=== PATIENT | male | born 1960 | race Caucasian/White ===

== ENCOUNTER → 2016-12-19 | Outpatient (CLI) | payer MEDICARE, MEDICAID ==
--- NOTE | 2016-12-20 08:43 | RADIOLOGY REPORT (SQ) ---
EXAM DESCRIPTION: CHEST PA/LATERAL COMPLETED DATE/TIME: 12/19/2016 5:22 pm REASON FOR STUDY: COUGH COMPARISON: July 2014 05/03/2014 EXAM PARAMETERS: NUMBER OF VIEWS: two views TECHNIQUE: Digital Frontal and Lateral radiographic views of the chest acquired. RADIATION DOSE: NA LIMITATIONS: none FINDINGS: LUNGS AND PLEURA: No opacities, masses or pneumothorax. No pleural effusion. Calcific den sity is identified overlying the right hemidiaphragm consistent with a pleural calcification which wa s present on the previous study. I cannot exclude a component of obstructive lung disease. MEDIASTINUM AND HILAR STRUCTURES: No masses or contour abnormalities. HEART AND VASCULAR STRUCTURES: Heart normal size. No evidence for failure. BONES: No acute findings. HARDWARE: None in the chest. OTHER: No other significant finding. IMPRESSION: No significant interval change. No acute findings. Other findings as noted above TECHNICAL DOCUMENTATION: JOB ID: [id number] [employer]- All Rights Reserved
== END ==
LOC: OD 16:59
PROVIDERS: ATTEND Family Medicine Geriatric Medicine
DX: R05 Cough (principal)
CPT/HCPCS: 71020

== ENCOUNTER → 2017-02-13 | Outpatient (CLI) | payer MEDICARE, MEDICAID ==
[2017-02-13 11:52] LABS: ABSOLUTE EOSINOPHILS # (AUTO) 0.1 10^3/uL (0.0-0.6); ABSOLUTE LYMPHOCYTES (AUTO) 1.2 10^3/uL (0.5-4.7); ABSOLUTE MONOCYTES (AUTO) 0.4 10^3/uL (0.1-1.4); ABSOLUTE NEUT (AUTO) 3.4 10^3/uL (1.7-8.2); BASOPHILS % (AUTO) 0.8 % (0-2); EOSINOPHILS % (AUTO) 2.3 % (0-6); HEMATOCRIT 46.6 % (37.9-51.0); HEMOGLOBIN 15.6 g/dL (13.5-17.0); HGB HCT DIFFERENCE 0.2; LYMPHOCYTES % (AUTO) 24.1 % (13-45); MEAN CORPUSCULAR HGB CONC 33.4 g/dL (32.0-36.0); MEAN CORPUSCULAR VOLUME 93 fl (80-97); MONOCYTES % (AUTO) 7.1 % (3-13); RED BLOOD COUNT 5.02 10^6/uL (4.35-5.55); SEGMENTED NEUTROPHILS % (AUTO) 65.7 % (42-78); WHITE BLOOD COUNT 5.2 10^3/uL (4.0-10.5)
[2017-02-13 12:20] LABS: ALANINE AMINOTRANSFERASE 26 U/L (21-72); ALBUMIN 4.3 g/dL (3.5-5.0); ALKALINE PHOSPHATASE 59 U/L (38-126); ANION GAP 13 (5-19); ASPARTATE AMINO TRANSFERASE 27 U/L (17-59); BILIRUBIN,DIRECT 0.4 mg/dL (0.0-0.4); BILIRUBIN,TOTAL 1.2 mg/dL (0.2-1.3); BLOOD UREA NITROGEN 18 mg/dL (7-20); CALCIUM 9.1 mg/dL (8.4-10.2); CARBON DIOXIDE 22 mmol/L (22-30); CHLORIDE 105 mmol/L (98-107); CHOLESTEROL 144.24 mg/dL (0-200); CREATININE RESULT 0.77 mg/dL (0.52-1.25); Direct HDL 46 mg/dL (>40); GLUCOSE 83 mg/dL (75-110); POTASSIUM 4.6 mmol/L (3.6-5.0); TOTAL PROTEIN 7.1 g/dL (6.3-8.2); TRIGLYCERIDES 92 mg/dL (<150)
[2017-02-13 12:33] LABS: DIRECT LDL 78 mg/dL (<100)
== END ==
LOC: OD 10:58
PROVIDERS: ATTEND Family Medicine Geriatric Medicine
DX: Z79.899 Other long term (current) drug therapy (principal); R05 Cough; G82.50 Quadriplegia, unspecified
CPT/HCPCS: 36415; 80053; 80061; 84443; 85025

== ENCOUNTER → 2017-03-18 | Outpatient (CLI) | payer MEDICARE, MEDICAID ==
[~2017-03-18] MED LIST: ALBUTEROL SULFATE 0.083% NEB 2.5 MG/3 ML AMPUL NEB ONE
--- NOTE | 2017-03-19 08:54 | PULMONARY FUNCTION TEST ---
DATE OF SERVICE: 03/18/2017 THE VITAL CAPACITY IS MODERATELY DECREASED. THE EXPIRATORY FLOW RATES ARE MODERATELY DECREASED. THE FEV1/VC IS 73%, PREDICTED: 80% LUNG VOLUMES BY NITROGEN WASH OUT METHOD SHOW: TLC IS 78% OF PREDICTED FRC IS 74% OF PREDICTED RV IS 91% OF PREDICTED THE DLCO IS 20.9, 86% OF PREDICTED. THE RV/TLC RATIO IS 41% PREDICTED 36% AFTER BRONCHODILATOR, EXPIRATORY FLOW RATES SHOW NO SIGNIFICANT CHANGE. IMPRESSION: GOOD PATIENT EFFORT. SLIGHT OBSTRUCTIVE AND SLIGHT RESTRICTIVE DEFECTS. LUNG VOLUMES ARE SLIGHTLY DECREASED; DIFFUSING CAPACITY IS SLIGHTLY DECREASED. CC: MICK BE MD > FRANSISCA
== END ==
LOC: RT 12:33
PROVIDERS: ATTEND Family Medicine Geriatric Medicine
DX: J44.9 Chronic obstructive pulmonary disease, unspecified (principal)
CPT/HCPCS: 94729 ×2; 94727 ×2; 94060 ×2; A9270

== ENCOUNTER 2017-03-29 16:18 | Emergency (ER) | payer MEDICARE, MEDICAID ==
--- NOTE | 2017-03-29 16:38 | ER Document Report ---
ED Medical Screen (RME) - General Chief Complaint: Urinary Problem Stated Complaint: ABDOMINAL PAIN Time Seen by Provider: 03/29/17 16:32 Mode of Arrival: Wheelchair Information source: Patient, Relative Notes: 56-year-old male presents with complaints of urinary symptoms dehydration. Patient denies any fevers or chills does note some weakness Patient concerned the breakdown of skin and scrotal region which they placed nystatin on I have greeted and performed a rapid initial assessment of this patient. A comprehensive ED assessment and evaluation of the patient, analysis of test results and completion of the medical decision making process will be conducted by additional ED providers. PHYSICAL EXAMINATION: GENERAL: Frail-appearing male in wheelchair HEAD: Atraumatic, normocephalic. EYES: Pupils equal round extraocular movements intact, conjunctiva are normal. ENT: Nares patent NECK: Normal range of motion LUNGS: No respiratory distress Musculoskeletal: Normal range of motion NEUROLOGICAL: Normal speech, normal gait. PSYCH: Normal mood, normal affect. TRAVEL OUTSIDE OF THE [place] IN LAST 30 DAYS: No - Related Data Allergies/Adverse Reactions: No Known Allergies Allergy (Verified 03/29/17 16:32) Past Medical History - Social History Chew tobacco use (# tins/day): No Frequency of alcohol use: Occasional Drug Abuse: None - Past Medical History Cardiac Medical History: Denies: Hx Coronary Artery Disease, Hx Heart Attack, Hx Hypertension, Hx Pulmonary Embolism Pulmonary Medical History: Denies: Hx Asthma, Hx Bronchitis, Hx COPD, Hx Pneumonia, Hx Respiratory Failure, Hx Sleep Apnea, Hx Tuberculosis Neurological Medical History: Denies: Hx Cerebrovascular Accident, Hx Seizures Renal/ Medical History: Denies: Hx Peritoneal Dialysis Malignancy Medical History: Denies Hx Lung Cancer Musculoskeltal Medical History: Denies Hx Arthritis, Denies Hx Multiple Sclerosis Psychiatric Medical History: Denies: Hx Dementia Traumatic Medical History: Reports: Hx Fractures - spinal C6-C7, fingers, toe Past Surgical History: Reports: Hx Urinary Tract Surgery - removal scar tissue - Immunizations Hx Diphtheria, Pertussis, Tetanus Vaccination: Yes Physical Exam - Vital signs Vitals: Temp Pulse Resp BP Pulse Ox 97.9 F 80 19 82/58 L 98 03/29/17 16:22 03/29/17 16:22 03/29/17 16:22 03/29/17 16:22 03/29/17 16:22 Course - Vital Signs Vital signs: Temp Pulse Resp BP Pulse Ox 97.9 F 80 19 82/58 L 98 03/29/17 16:22 03/29/17 16:22 03/29/17 16:22 03/29/17 16:22 03/29/17 16:22
[2017-03-29 17:26] LABS: ABSOLUTE BASOPHILS # (AUTO) 0.1 10^3/uL (0.0-0.2); ABSOLUTE EOSINOPHILS # (AUTO) 0.1 10^3/uL (0.0-0.6); ABSOLUTE LYMPHOCYTES (AUTO) 1.2 10^3/uL (0.5-4.7); ABSOLUTE MONOCYTES (AUTO) 0.4 10^3/uL (0.1-1.4); ABSOLUTE NEUT (AUTO) 5.4 10^3/uL (1.7-8.2); BASOPHILS % (AUTO) 0.8 % (0-2); EOSINOPHILS % (AUTO) 1.6 % (0-6); HEMATOCRIT 44.6 % (37.9-51.0); HGB HCT DIFFERENCE 0.4; MEAN CORPUSCULAR HEMOGLOBIN 31.1 pg (27.0-33.4); MEAN CORPUSCULAR HGB CONC 33.6 g/dL (32.0-36.0); MEAN CORPUSCULAR VOLUME 93 fl (80-97); MONOCYTES % (AUTO) 5.3 % (3-13); RED BLOOD COUNT 4.82 10^6/uL (4.35-5.55); RED CELL DISTRIBUTION WIDTH 13.6 % (11.5-14.0); SEGMENTED NEUTROPHILS % (AUTO) 75.3 % (42-78); WHITE BLOOD COUNT 7.1 10^3/uL (4.0-10.5)
[2017-03-29 17:44] LABS: ALANINE AMINOTRANSFERASE 30 U/L (21-72); ALBUMIN 4.1 g/dL (3.5-5.0); ALKALINE PHOSPHATASE 87 U/L (38-126); ANION GAP 10 (5-19); ASPARTATE AMINO TRANSFERASE 23 U/L (17-59); BILIRUBIN,DIRECT 0.3 mg/dL (0.0-0.4); BILIRUBIN,TOTAL 0.7 mg/dL (0.2-1.3); BLOOD UREA NITROGEN 15 mg/dL (7-20); CALCIUM 9.4 mg/dL (8.4-10.2); CARBON DIOXIDE 25 mmol/L (22-30); CHLORIDE 104 mmol/L (98-107); CREATININE RESULT 0.75 mg/dL (0.52-1.25); GLUCOSE 102 mg/dL (75-110); POTASSIUM 4.2 mmol/L (3.6-5.0); SODIUM 139.4 mmol/L (137-145); TOTAL PROTEIN 6.7 g/dL (6.3-8.2)
[2017-03-29] MEDS: NORMAL SALINE 1000 ML 1,000 ML IV PRN ×2 (18:14→18:16)
[2017-03-29 18:25] LABS: APPEARANCE,URINE CLOUDY; BILIRUBIN,URINE NEGATIVE (NEGATIVE); GLUCOSE, URINE NEGATIVE (NEGATIVE); KETONES,URINE NEGATIVE (NEGATIVE); LEUKOCYTE ESTERASE,URINE LARGE (NEGATIVE); NITRITE,URINE NEGATIVE (NEGATIVE); PROTEIN,URINE 30 mg/dL (NEGATIVE); URINE SPECIFIC GRAVITY 1.023; UROBILINOGEN,URINE NEGATIVE mg/dL (<2.0)
[2017-03-29] MEDS ORDERED: CEFTRIAXONE 1 GM/D5W RTU 1 GM/50 ML RTUPB IV ONE (18:40)
[2017-03-29] MEDS ORDERED: NORMAL SALINE 1000 ML 1,000 ML IV ONE (18:40)
[2017-03-29] MEDS ORDERED: NYSTATIN OINTMENT 15 GM TUBE TP ONE (18:45)
[2017-03-29] MEDS ORDERED: NYSTATIN/TRIAMCIN CREAM 15 GM TP ONE (19:23)
--- NOTE | 2017-03-29 19:24 | ER Document Report ---
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 Patient is dependent on straight cathing at baseline but states that he typically does not have periods of incontinence associated with this. However over the last 2 weeks he has been frequently incontinent and believes that this urine is burning the soft tissues around the perineal region. He has had a history of similar symptoms in the past with urinary tract infections. He denies any fever or constitutional symptoms. He has not been able to see his primary care doctor regarding these concerns. He is insensate to the area so is uncertain of the area is painful or not. TRAVEL OUTSIDE OF THE [place] IN LAST 30 DAYS: No - Related Data Allergies/Adverse Reactions: No Known Allergies Allergy (Verified 03/29/17 16:32) Past Medical History - General Information source: Patient, Relative - Social History Smoking Status: Never Smoker Chew tobacco use (# tins/day): No Frequency of alcohol use: Occasional Drug Abuse: None Lives with: Spouse/Significant other Family History: Reviewed & Not Pertinent - Past Medical History Cardiac Medical History: Denies: Hx Coronary Artery Disease, Hx Heart Attack, Hx Hypertension, Hx Pulmonary Embolism Pulmonary Medical History: Denies: Hx Asthma, Hx Bronchitis, Hx COPD, Hx Pneumonia, Hx Respiratory Failure, Hx Sleep Apnea, Hx Tuberculosis Neurological Medical History: Denies: Hx Cerebrovascular Accident, Hx Seizures Renal/ Medical History: Denies: Hx Peritoneal Dialysis Malignancy Medical History: Denies Hx Lung Cancer Musculoskeltal Medical History: Denies Hx Arthritis, Denies Hx Multiple Sclerosis Psychiatric Medical History: Denies: Hx Dementia Traumatic Medical History: Reports: Hx Fractures - spinal C6-C7, fingers, toe Past Surgical History: Reports: Hx Urinary Tract Surgery - removal scar tissue - Immunizations Hx Diphtheria, Pertussis, Tetanus Vaccination: Yes Hx Pneumococcal Vaccination: 07/28/08 Review of Systems - Review of Systems Notes: Constitutional: Negative for fever. HENT: Negative for sore throat. Eyes: Negative for visual changes. Cardiovascular: Negative for chest pain. Respiratory: Negative for shortness of breath. Gastrointestinal: Negative for abdominal pain, vomiting or diarrhea. Genitourinary: Positive for urinary frequency and incontinence Musculoskeletal: Negative for back pain. Skin: Positive for rash. Neurological: Negative for headaches, weakness or numbness. 10 point ROS negative except as marked above and in HPI. Physical Exam - Vital signs Vitals: Temp Pulse Resp BP Pulse Ox 97.9 F 80 19 82/58 L 98 03/29/17 16:22 03/29/17 16:22 03/29/17 16:22 03/29/17 16:22 03/29/17 16:22 Interpretation: Hypotensive Notes: PHYSICAL EXAMINATION: GENERAL: Well-appearing, well-nourished and in no acute distress. HEAD: Atraumatic, normocephalic. EYES: Pupils equal round and reactive to light, extraocular movements intact, sclera anicteric, conjunctiva are normal. ENT: nares patent, oropharynx clear without exudates. Moist mucous membranes. NECK: Normal range of motion, supple without lymphadenopathy LUNGS: Breath sounds clear to auscultation bilaterally and equal. No wheezes rales or rhonchi. HEART: Regular rate and rhythm without murmurs ABDOMEN: Soft, nontender, normoactive bowel sounds. No guarding, no rebound. No masses appreciated. : Diffuse erythema to the scrotum, perineal region and bilateral buttocks. Satellite lesions are present. EXTREMITIES: Normal range of motion, no pitting or edema. No cyanosis. PSYCH: Normal mood, normal affect. SKIN: Warm, Dry, normal turgor, perineal rash as above Course - Re-evaluation Re-evalutation: 03/29/17 19:21 Patient presents with urinary incontinence in the setting of quadriplegia, chronic straight cath use. His urinalysis is consistent with an acute urinary tract infection is likely the cause of his incontinence. He does have a surrounding candidal infection on his perineal area that is irritated. He will be started on topical nystatin triamcinolone cream. His laboratories are all and otherwise unremarkable without evidence of sepsis, acute kidney injury or significant dehydration. Vitals are unremarkable with exception of mild hypertension. Patient will be started on cephalexin for a seven-day course and cultures have been sent. He did also receive a dose of ceftriaxone here in the emergency department prior to discharge. At this time will discharge with return precautions and follow-up recommendations. Verbal discharge instructions given a the bedside and opportunity for questions given. Medication warnings reviewed. Patient is in agreement with this plan and has verbalized understanding of return precautions and the need for primary care follow-up in the next 24-72 hours. - Vital Signs Vital signs: Temp Pulse Resp BP Pulse Ox 97.9 F 80 14 138/103 H 98 03/29/17 16:22 03/29/17 16:22 03/29/17 17:30 03/29/17 17:30 03/29/17 17:30 - Laboratory Result Diagrams: 03/29/17 17:03 03/29/17 17:03 Laboratory results interpreted by me: 03/29/17 17:35 Urine Protein 30 H Urine Blood SMALL H Ur Leukocyte Esterase LARGE H Discharge - Discharge Clinical Impression: Candidal skin infection Urinary tract infection Qualifiers: Urinary tract infection type: acute cystitis Hematuria presence: with hematuria Qualified Code(s): N30.01 - Acute cystitis with hematuria Condition: Good Disposition: HOME, SELF-CARE Additional Instructions: Your urine shows findings consistent with a urinary tract infection. Please take all the antibiotics as directed even if your symptoms have improved. Please follow-up with your primary care physician as needed. Return to emergency room if you develop fever >101F, persistent vomiting, become lethargic , have severe pain in your sides, or any other symptoms that are concerning to you. Prescriptions: Cephalexin Monohydrate [Keflex 500 mg Capsule] 500 mg PO Q6H 7 Days capsule Nystatin/Triamcin [Nystatin-Triamcinolone Ointm] 60 gm TP TID 7 Days #60 oint...g. Referrals: MICK EB MD [Primary Care Provider] - Follow up as needed
[2017-03-29 20:30] VITALS: BP 110/66
== END 2017-03-29 20:22 | disposition home or self-care (01) ==
LOC: ER 16:18
DX: B37.2 Candidiasis of skin and nail (principal); N30.01 Acute cystitis with hematuria; R32 Unspecified urinary incontinence; G82.50 Quadriplegia, unspecified
CPT/HCPCS: 99284; 96361; 51701; 96365; 36415; 87086; 85025; 87088; 80053; 81001; 87186; 83605; J3490; J7030; J0696

== ENCOUNTER → 2017-05-05 | Outpatient (CLI) | payer MEDICARE, MEDICAID ==
--- NOTE | 2017-05-05 17:38 | RADIOLOGY REPORT (SQ) ---
EXAM DESCRIPTION: ELBOW RIGHT >2 VIEWS COMPLETED DATE/TIME: 05/05/2017 5:26 pm REASON FOR STUDY: PAIN IN RIGHT ELBOW M25.521 PAIN IN RIGHT ELBOW COMPARISON: None. NUMBER OF VIEWS: Four views. TECHNIQUE: AP, lateral, and both oblique radiographic images acquired of the right elbow. LIMITATIONS: None. FINDINGS: MINERALIZATION: Normal. BONES: No acute fracture or dislocation. No worrisome bone lesions. JOINT: No effusion. SOFT TISSUES: There is dorsal soft tissue swelling. OTHER: No other significant finding. IMPRESSION: Dorsal soft tissue swelling with no fracture. TECHNICAL DOCUMENTATION: JOB ID: [id number] [employer]- All Rights Reserved
[2017-05-05 18:54] LABS: ANION GAP 13 (5-19); BLOOD UREA NITROGEN 16 mg/dL (7-20); CALCIUM 9.3 mg/dL (8.4-10.2); CARBON DIOXIDE 24 mmol/L (22-30); CHLORIDE 103 mmol/L (98-107); CREATININE RESULT 0.73 mg/dL (0.52-1.25); GLUCOSE 90 mg/dL (75-110); POTASSIUM 4.5 mmol/L (3.6-5.0); URIC ACID 6.2 mg/dL (3.5-8.5)
== END ==
LOC: OD 16:54
PROVIDERS: ATTEND Family Medicine Geriatric Medicine
DX: M25.521 Pain in right elbow (principal)
CPT/HCPCS: 36415; 80048; 84550

== ENCOUNTER → 2017-05-08 | Outpatient (CLI) | payer MEDICARE, MEDICAID ==
[2017-05-08 11:49] LABS: ABSOLUTE EOSINOPHILS # (AUTO) 0.1 10^3/uL (0.0-0.6); ABSOLUTE LYMPHOCYTES (AUTO) 0.9 10^3/uL (0.5-4.7); ABSOLUTE MONOCYTES (AUTO) 0.5 10^3/uL (0.1-1.4); BASOPHILS % (AUTO) 0.6 % (0-2); EOSINOPHILS % (AUTO) 1.5 % (0-6); HEMOGLOBIN 14.1 g/dL (13.5-17.0); HGB HCT DIFFERENCE 1.3; LYMPHOCYTES % (AUTO) 13.6 % (13-45); MEAN CORPUSCULAR HEMOGLOBIN 31.2 pg (27.0-33.4); MEAN CORPUSCULAR HGB CONC 34.3 g/dL (32.0-36.0); MEAN CORPUSCULAR VOLUME 91 fl (80-97); MONOCYTES % (AUTO) 7.5 % (3-13); RED BLOOD COUNT 4.51 10^6/uL (4.35-5.55); RED CELL DISTRIBUTION WIDTH 13.1 % (11.5-14.0); SEGMENTED NEUTROPHILS % (AUTO) 76.8 % (42-78); WHITE BLOOD COUNT 6.5 10^3/uL (4.0-10.5)
--- NOTE | 2017-05-08 12:06 | RADIOLOGY REPORT (SQ) ---
EXAM DESCRIPTION: VENOUS UNILATERAL UPPER COMPLETED DATE/TIME: 05/08/2017 11:53 am REASON FOR STUDY: RUE SWELLING M79.89 M79.89 OTHER SPECIFIED SOFT TISSUE DISORDERS Z79.899 OTHER L MARCIAL TERM (CURRENT) DRUG THERAPY COMPARISON: None. TECHNIQUE: Dynamic and static sommer scale and color images acquired of the right arm venous system. S elected spectral images acquired with additional compression and augmentation maneuvers. The contrala teral subclavian vein and internal jugular vein were also imaged. Images stored on PACS. LIMITATIONS: None. FINDINGS: INTERNAL JUGULAR VEIN: Normal phasicity, compression, augmentation. No visualized echogeni c material on sommer scale. No defects on color images. Comparison opposite side normal. SUBCLAVIAN VEIN: Normal compression, augmentation. No visualized echogenic material on sommer scale. No defects on color images. AXILLARY VEIN: Normal compression, augmentation. No visualized echogenic material on sommer scale. No d efects on color images. BRACHIAL VEIN: Normal compression, augmentation. No visualized echogenic material on sommer scale. No d efects on color images. BASILIC VEIN: Normal compression, augmentation. No visualized echogenic material on sommer scale. No de fects on color images. CEPHALIC VEIN: Normal compression, augmentation. No visualized echogenic material on sommer scale. No d efects on color images. OTHER: No other significant finding. CONTRALATERAL SUBCLAVIAN VEIN AND INTERNAL JUGULAR VEIN: Normal phasicity, compression and augmentation. No visualized echogenic material on sommer scale. No de fects on color images. IMPRESSION: NO EVIDENCE DVT OR SVT RIGHT ARM. TECHNICAL DOCUMENTATION: JOB ID: [id number] [employer]- All Rights Reserved
== END ==
LOC: SP 10:48
PROVIDERS: ATTEND Family Medicine Geriatric Medicine
DX: M25.521 Pain in right elbow (principal); M79.89 Other specified soft tissue disorders; Z79.899 Other long term (current) drug therapy
CPT/HCPCS: 36415; 84550; 85025; 93971

== ENCOUNTER → 2017-10-23 | Outpatient (CLI) | payer MEDICARE, MEDICAID ==
[2017-10-23 12:11] LABS: ABSOLUTE BASOPHILS # (AUTO) 0.1 10^3/uL (0.0-0.2); ABSOLUTE EOSINOPHILS # (AUTO) 0.2 10^3/uL (0.0-0.6); ABSOLUTE LYMPHOCYTES (AUTO) 1.2 10^3/uL (0.5-4.7); ABSOLUTE MONOCYTES (AUTO) 0.3 10^3/uL (0.1-1.4); ABSOLUTE NEUT (AUTO) 3.3 10^3/uL (1.7-8.2); BASOPHILS % (AUTO) 1.1 % (0-2); EOSINOPHILS % (AUTO) 3.8 % (0-6); HEMATOCRIT 44.2 % (37.9-51.0); HEMOGLOBIN 15.1 g/dL (13.5-17.0); LYMPHOCYTES % (AUTO) 24.5 % (13-45); MEAN CORPUSCULAR HEMOGLOBIN 31.2 pg (27.0-33.4); MEAN CORPUSCULAR HGB CONC 34.1 g/dL (32.0-36.0); MEAN CORPUSCULAR VOLUME 91 fl (80-97); MONOCYTES % (AUTO) 6.8 % (3-13); PLATELET COUNT 180 10^3/uL (150-450); RED BLOOD COUNT 4.83 10^6/uL (4.35-5.55); RED CELL DISTRIBUTION WIDTH 13.6 % (11.5-14.0); SEGMENTED NEUTROPHILS % (AUTO) 63.8 % (42-78); TOTAL CELLS COUNTED % (AUTO) 100 %; WHITE BLOOD COUNT 5.1 10^3/uL (4.0-10.5)
[2017-10-23 12:50] LABS: ALANINE AMINOTRANSFERASE 27 U/L (21-72); ALBUMIN 4.3 g/dL (3.5-5.0); ALKALINE PHOSPHATASE 53 U/L (38-126); ANION GAP 10 (5-19); ASPARTATE AMINO TRANSFERASE 26 U/L (17-59); BILIRUBIN,DIRECT 0.3 mg/dL (0.0-0.4); BILIRUBIN,TOTAL 1.2 mg/dL (0.2-1.3); BLOOD UREA NITROGEN 20 mg/dL (7-20); CALCIUM 9.5 mg/dL (8.4-10.2); CARBON DIOXIDE 25 mmol/L (22-30); CHLORIDE 104 mmol/L (98-107); GLUCOSE 77 mg/dL (75-110); POTASSIUM 4.5 mmol/L (3.6-5.0); SODIUM 139.3 mmol/L (137-145); TOTAL PROTEIN 6.6 g/dL (6.3-8.2)
[2017-10-25 14:45] LABS: TESTOSTERONE FREE (DIRECT) 8.3 pg/mL (7.2-24.0)
== END ==
LOC: OD 10:26
PROVIDERS: ATTEND Family Medicine Geriatric Medicine
DX: E29.1 Testicular hypofunction (principal); G82.50 Quadriplegia, unspecified; Z79.899 Other long term (current) drug therapy
CPT/HCPCS: 36415; 80053; 84402; 84403; 85025

== ENCOUNTER → 2017-11-27 | Outpatient (CLI) | payer MEDICARE, MEDICAID ==
--- NOTE | 2017-11-27 15:48 | RADIOLOGY REPORT (SQ) ---
EXAM DESCRIPTION: T SPINE AP/LAT COMPLETED DATE/TIME: 11/27/2017 2:51 pm REASON FOR STUDY: SCOLIOSIS,UNSPEC M54.2 CERVICALGIA M41.9 SCOLIOSIS, UNSPECIFIED COMPARISON: CT thoracic spine 02/08/2014 Lumbar spine plain films 11/27/2017 NUMBER OF VIEWS: Two views. TECHNIQUE: AP and lateral radiographic images acquired of the thoracic spine. LIMITATIONS: None. FINDINGS: MINERALIZATION: Osteopenia ALIGNMENT: No significant thoracic scoliosis VERTEBRAE: No fracture or bone lesion. Maintained height, normal segmentation. DISCS: Mild diffuse disc space loss of height with anterior and rightward osteophyte formation from T 6 through T12. HARDWARE: There are dorsal rods and cerclage wires over the lower cervical spinous processes MEDIASTINUM AND SOFT TISSUES: Normal heart size and aortic contour. No soft tissue abnormality. VISUALIZED LUNG BOSWELL: Clear. OTHER: No other significant finding. IMPRESSION: No significant scoliosis. Multilevel thoracic degenerative disc space narrowing TECHNICAL DOCUMENTATION: JOB ID: [id number] [employer]- All Rights Reserved Reading location - IP/workstation name: [facility]-[email or web address]
--- NOTE | 2017-11-27 15:50 | RADIOLOGY REPORT (SQ) ---
EXAM DESCRIPTION: LUMBAR SPINE COMPLETE COMPLETED DATE/TIME: 11/27/2017 2:51 pm REASON FOR STUDY: SCOLIOSIS,UNSPEC M54.2 CERVICALGIA M41.9 SCOLIOSIS, UNSPECIFIED COMPARISON: Thoracic spine films same date NUMBER OF VIEWS: Five views including obliques. TECHNIQUE: AP, lateral, oblique, and sacral radiographic images acquired of the lumbar spine. LIMITATIONS: None. FINDINGS: MINERALIZATION: Osteopenic SEGMENTATION: Short 12th ribs. ALIGNMENT: Normal. VERTEBRAE: Maintained height. No fracture or worrisome bone lesion. DISCS: Preserved height. No significant osteophytes or end plate irregularity. POSTERIOR ELEMENTS: No spondylolysis. Mild facet arthropathy bilaterally at L3-4, L4-5, and L5-S1 HARDWARE: None in the spine. PARASPINAL SOFT TISSUES: Normal. PELVIS: Not in the field of view OTHER: No other significant finding. IMPRESSION: Lower lumbar facet arthropathy TECHNICAL DOCUMENTATION: JOB ID: [id number] [employer]- All Rights Reserved Reading location - IP/workstation name: [email or web address]
--- NOTE | 2017-11-27 15:53 | RADIOLOGY REPORT (SQ) ---
EXAM DESCRIPTION: C SP 4 OR 5 VIEWS COMPLETED DATE/TIME: 11/27/2017 2:51 pm REASON FOR STUDY: CERVICALGIA M54.2 CERVICALGIA M41.9 SCOLIOSIS, UNSPECIFIED COMPARISON: CT cervical spine 02/08/2014 NUMBER OF VIEWS: Five views. TECHNIQUE: AP, lateral, obliques and odontoid radiographic images acquired of the cervical spine. LIMITATIONS: None. FINDINGS: MINERALIZATION: Osteopenic ALIGNMENT: Anatomic. VERTEBRAE: Vertebral bodies of normal height. DISCS: There is ankylosis across the C5-6, C6-7, and C7-T1 disc spaces. There is hardware along the posterior elements from C5 through C7. FORAMINA: Bilateral C6-7 and C7-T1 foramina are difficult to visualize due to hardware LATERAL AND POSTERIOR ELEMENTS: Hardware along the posterior elements from C5 through C7. Otherwise unremarkable HARDWARE: Posterior element hardware from C5 through C7 SOFT TISSUES: No masses or calcifications. Lung apices clear. OTHER: No other significant finding. 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 Hardware along the posterior el ements from C5 through C7 likely stabilizing remote prior trauma. This partially obscures visualizat ion of the foramina at these levels. Cervical spine is otherwise unremarkable. TECHNICAL DOCUMENTATION: JOB ID: [id number] [employer]- All Rights Reserved Reading location - IP/workstation name: [email or web address]
== END ==
LOC: OD 13:48
PROVIDERS: ATTEND Internal Medicine
DX: M54.2 Cervicalgia (principal); M45.2 Ankylosing spondylitis of cervical region; M41.9 Scoliosis, unspecified
CPT/HCPCS: 72050; 72070; 72110

== ENCOUNTER → 2018-02-12 | Outpatient (CLI) | payer MEDICARE, MEDICAID ==
[2018-02-12 16:31] LABS: ABSOLUTE BASOPHILS # (AUTO) 0.1 10^3/uL (0.0-0.2); ABSOLUTE EOSINOPHILS # (AUTO) 0.2 10^3/uL (0.0-0.6); ABSOLUTE LYMPHOCYTES (AUTO) 1.6 10^3/uL (0.5-4.7); ABSOLUTE MONOCYTES (AUTO) 0.4 10^3/uL (0.1-1.4); ABSOLUTE NEUT (AUTO) 4.3 10^3/uL (1.7-8.2); BASOPHILS % (AUTO) 0.9 % (0-2); EOSINOPHILS % (AUTO) 2.7 % (0-6); HEMATOCRIT 44.5 % (37.9-51.0); HEMOGLOBIN 15.3 g/dL (13.5-17.0); LYMPHOCYTES % (AUTO) 24.5 % (13-45); MEAN CORPUSCULAR HEMOGLOBIN 31.4 pg (27.0-33.4); MEAN CORPUSCULAR HGB CONC 34.4 g/dL (32.0-36.0); MEAN CORPUSCULAR VOLUME 91 fl (80-97); MONOCYTES % (AUTO) 6.4 % (3-13); PLATELET COUNT 214 10^3/uL (150-450); RED BLOOD COUNT 4.89 10^6/uL (4.35-5.55); SEGMENTED NEUTROPHILS % (AUTO) 65.5 % (42-78); TOTAL CELLS COUNTED % (AUTO) 100 %; WHITE BLOOD COUNT 6.6 10^3/uL (4.0-10.5)
== END ==
LOC: OD 15:19
PROVIDERS: ATTEND Family Medicine Geriatric Medicine
DX: J44.9 Chronic obstructive pulmonary disease, unspecified (principal); E29.1 Testicular hypofunction; Z79.899 Other long term (current) drug therapy
CPT/HCPCS: 36415; 85025

== ENCOUNTER → 2018-02-19 | Outpatient (CLI) | payer MEDICARE, MEDICAID ==
[2018-02-22 10:10] LABS: TESTOSTERONE FREE (DIRECT) 12.2 pg/mL (7.2-24.0)
== END ==
LOC: OD 15:08
PROVIDERS: ATTEND Internal Medicine
DX: M85.851 Other specified disorders of bone density and structure, right thigh (principal); N39.0 Urinary tract infection, site not specified
CPT/HCPCS: 36415; 82306; 82652; 84402; 84403; 87086; 87088; 87186

== ENCOUNTER → 2018-02-26 | Outpatient (CLI) | payer MEDICARE, MEDICAID ==
--- NOTE | 2018-02-26 14:42 | WOMENS IMAGING REPORT ---
EXAM DESCRIPTION: BONE DENSITY HIP/SPINE COMPLETED DATE/TIME: 02/26/2018 2:07 pm REASON FOR STUDY: BONE DENSITY/ M81.0 M81.0 AGE-RELATED OSTEOPOROSIS W/O CURRENT PATHOLOGICAL FRAC COMPARISON: None. TECHNIQUE: Dual-Energy X-ray Absorptiometry (DEXA) of the AP Spine and Hip. LIMITATIONS: None. FINDINGS: . Left forearm The bone mineral density (BMD) measured in the left forearm correlates with a T-score of -2.5, which is osteopenia as defined by the World Health Organization. IMPRESSION: Left forearm: Osteopenia COMMENT: The World Health Organization defines low BMD as follows: T-score: Normal: Greater than -1.0 Osteopenia: Between -1.0 and -2.5 Osteoporosis: Less than -2.5 without fractures Established osteoporosis: Less than -2.5 with fractures In general, you may wish to consider: Diagnosis Treatment Follow-up DEXA Normal BMD Prevention 2-3 years Osteopenia Prevention/Therapy 1-2 years Osteoporosis Therapy Yearly TECHNICAL DOCUMENTATION: JOB ID: [id number] [employer]- All Rights Reserved Reading location - IP/workstation name: [email or web address]
== END ==
LOC: WI 12:57
PROVIDERS: ATTEND Internal Medicine
DX: M81.0 Age-related osteoporosis without current pathological fracture (principal)
CPT/HCPCS: 77080

== ENCOUNTER → 2018-05-05 | Outpatient (CLI) | payer MEDICARE, MEDICAID ==
--- NOTE | 2018-05-05 18:03 | RADIOLOGY REPORT (SQ) ---
EXAM DESCRIPTION: SHOULDER RIGHT 2 OR MORE VIEWS COMPLETED DATE/TIME: 05/05/2018 5:43 pm REASON FOR STUDY: DJD COMPARISON: None. NUMBER OF VIEWS: Three views. TECHNIQUE: Internal rotation, external rotation, and Y view images acquired of the right shoulder. LIMITATIONS: None. FINDINGS: MINERALIZATION: Normal. BONES: No acute fracture or dislocation. No worrisome bone lesions. JOINTS: No dislocation. VISUALIZED LUNGS AND RIBS: No pneumothorax. No rib fracture. SOFT TISSUES: No radiopaque foreign body. OTHER: No other significant finding. IMPRESSION: NEGATIVE STUDY OF THE RIGHT SHOULDER. NO RADIOGRAPHIC EVIDENCE OF ACUTE INJURY. TECHNICAL DOCUMENTATION: JOB ID: [id number] [employer]- All Rights Reserved Reading location - IP/workstation name: [email or web address]
--- NOTE | 2018-05-05 18:04 | RADIOLOGY REPORT (SQ) ---
EXAM DESCRIPTION: ELBOW RIGHT >2 VIEWS COMPLETED DATE/TIME: 05/05/2018 5:42 pm REASON FOR STUDY: DJD COMPARISON: None. NUMBER OF VIEWS: Four views. TECHNIQUE: AP, lateral, and both oblique radiographic images acquired of the right elbow. LIMITATIONS: None. FINDINGS: MINERALIZATION: Normal. BONES: No acute fracture or dislocation. No worrisome bone lesions. JOINT: No effusion. SOFT TISSUES: No soft tissue swelling. No foreign body. OTHER: No other significant finding. IMPRESSION: NEGATIVE STUDY OF THE RIGHT ELBOW. NO RADIOGRAPHIC EVIDENCE OF ACUTE INJURY. TECHNICAL DOCUMENTATION: JOB ID: [id number] [employer]- All Rights Reserved Reading location - IP/workstation name: [email or web address]
== END ==
LOC: OD 16:52
PROVIDERS: ATTEND Internal Medicine
DX: M75.81 Other shoulder lesions, right shoulder (principal)

== ENCOUNTER → 2018-11-27 | Outpatient (CLI) | payer MEDICARE, MEDICAID | LOC: HH 10:36 | PROVIDERS: ATTEND Internal Medicine | DX: E29.1 Testicular hypofunction (principal) | CPT/HCPCS: 84403 ==

== ENCOUNTER 2019-03-04 15:34 | Emergency (ER) | payer MEDICARE, MEDICAID ==
--- NOTE | 2019-03-04 16:15 | ER Document Report ---
ED Medical Screen (RME) - General Chief Complaint: Fever Stated Complaint: FEVER/LETHARGIC Time Seen by Provider: 03/04/19 16:13 Primary Care Provider: LESLI CANAS MD [Primary Care Provider] - Follow up as needed Mode of Arrival: Wheelchair Information source: Patient Notes: 58-year-old male presented to ED for complaint of decreased bladder output decreased blood pressure and cramping and burning and vomiting in his stomach. He states he had a fever today. 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 He states he has no feeling below the breast line. states that he had a incontinence like virus last night and that he had foul-smelling urine. 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 He states he has been fighting a sinus surgery and now he feels much worse and is not sure what is going on. He states he does smoke 3 or 4 cigarettes a day occasionally drinks a beer and does not do any drugs and is unable to work. He is alert oriented respirations regular and unlabored at this time. He is here with his and the person who is going to drive him. had a colonoscopy this morning and has not been home to rest since then. I have greeted and performed a rapid initial assessment of this patient. A comprehensive ED assessment and evaluation of the patient, analysis of test results and completion of medical decision making process will be conducted by an additional ED providers. Dictation of this chart was performed using voice recognition software; therefore, there may be some unintended grammatical errors. TRAVEL OUTSIDE OF THE [place] IN LAST 30 DAYS: No - Related Data Allergies/Adverse Reactions: No Known Allergies Allergy (Verified 03/04/19 15:36) Past Medical History - Past Medical History Cardiac Medical History: Denies: Hx Coronary Artery Disease, Hx Heart Attack, Hx Hypertension, Hx Pulmonary Embolism Pulmonary Medical History: Denies: Hx Asthma, Hx Bronchitis, Hx COPD, Hx Pneumonia, Hx Respiratory Failure, Hx Sleep Apnea, Hx Tuberculosis Neurological Medical History: Denies: Hx Cerebrovascular Accident, Hx Seizures Renal/ Medical History: Denies: Hx Peritoneal Dialysis Malignancy Medical History: Denies Hx Lung Cancer Musculoskeltal Medical History: Denies Hx Arthritis, Denies Hx Multiple Sclerosis Psychiatric Medical History: Denies: Hx Dementia Traumatic Medical History: Reports: Hx Fractures - spinal C6-C7, fingers, toe Past Surgical History: Reports: Hx Urinary Tract Surgery - removal scar tissue - Immunizations Hx Diphtheria, Pertussis, Tetanus Vaccination: Yes Physical Exam - Vital signs Vitals: Temp Pulse Resp BP Pulse Ox 97.9 F 91 19 110/74 96 03/04/19 15:44 03/04/19 15:44 03/04/19 15:44 03/04/19 15:44 03/04/19 15:44 Course - Vital Signs Vital signs: Temp Pulse Resp BP Pulse Ox 97.9 F 91 19 110/74 96 03/04/19 15:44 03/04/19 15:44 03/04/19 15:44 03/04/19 15:44 03/04/19 15:44 Doctor's Discharge - Discharge Referrals: LESLI CANAS MD [Primary Care Provider] - Follow up as needed
[2019-03-04 16:52] LABS: ABSOLUTE LYMPHOCYTES (AUTO) 0.6 10^3/uL (0.5-4.7); ABSOLUTE MONOCYTES (AUTO) 0.2 10^3/uL (0.1-1.4); ABSOLUTE NEUT (AUTO) 4.1 10^3/uL (1.7-8.2); BASOPHILS % (AUTO) 0.6 % (0-2); EOSINOPHILS % (AUTO) 0.8 % (0-6); HEMATOCRIT 42.5 % (37.9-51.0); HEMOGLOBIN 14.4 g/dL (13.5-17.0); LYMPHOCYTES % (AUTO) 12.4 % (13-45); MEAN CORPUSCULAR HEMOGLOBIN 30.9 pg (27.0-33.4); MEAN CORPUSCULAR HGB CONC 33.8 g/dL (32.0-36.0); MEAN CORPUSCULAR VOLUME 91 fl (80-97); MONOCYTES % (AUTO) 4.2 % (3-13); PLATELET COUNT 172 10^3/uL (150-450); RED BLOOD COUNT 4.65 10^6/uL (4.35-5.55); RED CELL DISTRIBUTION WIDTH 13.2 % (11.5-14.0); TOTAL CELLS COUNTED % (AUTO) 100 %
[2019-03-04 17:12] LABS: ALBUMIN 3.8 g/dL (3.5-5.0); ALKALINE PHOSPHATASE 42 U/L (38-126); ANION GAP 8 (5-19); ASPARTATE AMINO TRANSFERASE 23 U/L (17-59); BILIRUBIN,DIRECT 0.3 mg/dL (0.0-0.4); BILIRUBIN,TOTAL 0.8 mg/dL (0.2-1.3); BLOOD UREA NITROGEN 17 mg/dL (7-20); CALCIUM 8.6 mg/dL (8.4-10.2); CARBON DIOXIDE 25 mmol/L (22-30); CHLORIDE 104 mmol/L (98-107); GLUCOSE 102 mg/dL (75-110); POTASSIUM 3.8 mmol/L (3.6-5.0); TOTAL PROTEIN 6.3 g/dL (6.3-8.2)
[2019-03-04 17:50] LABS: APPEARANCE,URINE SLIGHTLY-CLOUDY; BILIRUBIN,URINE SMALL (NEGATIVE); GLUCOSE, URINE NEGATIVE (NEGATIVE); KETONES,URINE TRACE mg/dL (NEGATIVE); LEUKOCYTE ESTERASE,URINE MODERATE (NEGATIVE); NITRITE,URINE NEGATIVE (NEGATIVE); PROTEIN,URINE 30 mg/dL (NEGATIVE); URINE SPECIFIC GRAVITY 1.035
[2019-03-04 18:05] LABS: COLOR,URINE YELLOW
[2019-03-04 18:06] LABS: ADD MANUAL MICROSCOPIC YES; BACTERIA,URINE 2+ /HPF; WBC,URINE 30-50 /HPF
[2019-03-04] MEDS ORDERED: CEFTRIAXONE 1 GM/D5W RTU 1 GM/50 ML RTUPB IV ONE (18:21)
--- NOTE | 2019-03-04 18:50 | ER Document Report ---
ED General - General Chief Complaint: Fever Stated Complaint: FEVER/LETHARGIC Time Seen by Provider: 03/04/19 16:13 Primary Care Provider: LESLI CANAS MD [Primary Care Provider] - Follow up as needed Mode of Arrival: Wheelchair Information source: Patient, [facility] Records Notes: 58-year-old male presented to ED for complaint of decreased bladder output decreased blood pressure and cramping and burning and vomiting in his stomach. He states he had a fever today. 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 He states he has no feeling below the breast line. states that he had a incontinence like virus last night and that he had foul-smelling urine. 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 He states he has been fighting a sinus surgery and now he feels much worse and is not sure what is going on. He states he does smoke 3 or 4 cigarettes a day occasionally drinks a beer and does not do any drugs and is unable to work. He is alert oriented respirations regular and unlabored at this time. He is here with his and the person who is going to drive him. had a colonoscopy this morning and has not been home to rest since then. TRAVEL OUTSIDE OF THE [place] IN LAST 30 DAYS: No - HPI Onset: Other Onset/Duration: Gradual Quality of pain: No pain Severity: None Pain Level: Denies Associated symptoms: None, Fever, Nausea. denies: Body/muscle aches, Chest pain, Chills, Vomiting, Shortness of breath Exacerbated by: Denies Relieved by: Denies Similar symptoms previously: Yes Recently seen / treated by doctor: No - Related Data Allergies/Adverse Reactions: No Known Allergies Allergy (Verified 03/04/19 15:36) Past Medical History - General Information source: Patient - Social History Smoking Status: Current Every Day Smoker Cigarette use (# per day): Yes - 3-4 Smoking Education Provided: Yes - Smoking cessation counseling was provided for 4 minutes at the bedside Frequency of alcohol use: Occasional Drug Abuse: None Lives with: Family Family History: Reviewed & Not Pertinent Patient has suicidal ideation: No Patient has homicidal ideation: No - Past Medical History Cardiac Medical History: Denies: Hx Coronary Artery Disease, Hx Heart Attack, Hx Hypertension, Hx Pulmonary Embolism Pulmonary Medical History: Denies: Hx Asthma, Hx Bronchitis, Hx COPD, Hx Pneumonia, Hx Respiratory Failure, Hx Sleep Apnea, Hx Tuberculosis Neurological Medical History: Denies: Hx Cerebrovascular Accident, Hx Seizures Renal/ Medical History: Denies: Hx Peritoneal Dialysis Malignancy Medical History: Denies Hx Lung Cancer Musculoskeletal Medical History: Denies Hx Arthritis, Denies Hx Multiple Sclerosis Psychiatric Medical History: Denies: Hx Dementia Traumatic Medical History: Reports: Hx Fractures - spinal C6-C7, fingers, toe Past Surgical History: Reports: Hx Urinary Tract Surgery - removal scar tissue - Immunizations Hx Diphtheria, Pertussis, Tetanus Vaccination: Yes Hx Pneumococcal Vaccination: 07/28/08 Review of Systems - Review of Systems Constitutional: Malaise, Weakness. denies: Chills EENT: denies: Difficulty swallowing Cardiovascular: denies: Chest pain, Palpitations, Dizziness Respiratory: denies: Short of breath Gastrointestinal: Nausea. denies: Vomiting, Blood streaked bowels Genitourinary: denies: Dysuria, Flank pain Male Genitourinary: No symptoms reported Musculoskeletal: denies: Back pain Skin: denies: Rash Hematologic/Lymphatic: No symptoms reported Neurological/Psychological: denies: Seizure, Headaches -: Yes All other systems reviewed and negative Physical Exam - Vital signs Vitals: Temp Pulse Resp BP Pulse Ox 97.9 F 91 19 110/74 96 03/04/19 15:44 03/04/19 15:44 03/04/19 15:44 03/04/19 15:44 03/04/19 15:44 - Notes Notes: PHYSICAL EXAMINATION: GENERAL: Well-appearing, well-nourished and in no acute distress. HEAD: Atraumatic, normocephalic. EYES: Pupils equal round and reactive to light, extraocular movements intact, sclera anicteric, conjunctiva are normal. ENT: Nares patent, oropharynx clear without exudates. Moist mucous membranes. NECK: Normal range of motion, supple without lymphadenopathy LUNGS: Breath sounds clear to auscultation bilaterally and equal. No wheezes rales or rhonchi. HEART: Regular rate and rhythm without murmurs. Pulses intact throughout ABDOMEN: Soft, nontender, nondistended abdomen. No guarding, no rebound. No masses appreciated. Musculoskeletal: Quadriplegic. No edema. No cyanosis. Distal pulses intact NEUROLOGICAL: Cranial nerves grossly intact. Normal speech, normal gait. Normal sensory, motor exams PSYCH: Normal mood, normal affect. SKIN: Warm, Dry, normal turgor, no rashes or lesions noted. Course - Re-evaluation Re-evalutation: 03/04/19 18:46 Laboratory 03/04/19 03/04/19 03/04/19 16:43 16:43 17:30 WBC 5.0 RBC 4.65 Hgb 14.4 Hct 42.5 MCV 91 MCH 30.9 MCHC 33.8 RDW 13.2 Plt Count 172 Seg Neutrophils % 82.0 H Lymphocytes % 12.4 L Monocytes % 4.2 Eosinophils % 0.8 Basophils % 0.6 Absolute Neutrophils 4.1 Absolute Lymphocytes 0.6 Absolute Monocytes 0.2 Absolute Eosinophils 0.0 Absolute Basophils 0.0 Sodium 136.5 L Potassium 3.8 Chloride 104 Carbon Dioxide 25 Anion Gap 8 BUN 17 Creatinine 0.71 Est GFR ( Amer) > 60 Est GFR (Non-Af Amer) > 60 Glucose 102 Calcium 8.6 Total Bilirubin 0.8 Direct Bilirubin 0.3 Neonat Total Bilirubin Not Reportable Neonat Direct Bilirubin Not Reportable Neonat Indirect Bili Not Reportable AST 23 ALT 19 Alkaline Phosphatase 42 Total Protein 6.3 Albumin 3.8 Urine Color YELLOW Urine Appearance SLIGHTLY-CLOUDY Urine pH 5.0 Ur Specific [place] 1.035 Urine Protein 30 H Urine Glucose (UA) NEGATIVE Urine Ketones TRACE H Urine Blood NEGATIVE Urine Nitrite NEGATIVE Urine Bilirubin SMALL H Urine Urobilinogen 2.0 H Ur Leukocyte Esterase MODERATE H Urine WBC 30-50 Urine Bacteria 2+ Urine Mucus 3+ Urine Ascorbic Acid NEGATIVE Temp Pulse Resp BP Pulse Ox 97.9 F 91 19 110/74 96 03/04/19 15:44 03/04/19 15:44 03/04/19 15:44 03/04/19 15:44 03/04/19 15:44 Patient presents with symptoms consistent with an acute cystitis. Vitals wnl. No history of fever, flank pain, or constitution symptoms to suggest ascending infection at this time. Patient is well in appearance, tolerating oral intake without difficulty. No focal abdominal tenderness to suggest acute appendicitis, biliary pathology, acute pancreatitis, tubo-ovarian abscesses, or pelvic inflammatory disease. Patient will be started on antibiotics at this time. A culture has been sent. They will be discharged with return precautions and follow-up recommendations. IV Rocephin and IV fluids administered during the patient's ED course. Urine culture pending. Patient tolerating p.o. Patient was evaluated and treated as appropriate for the patient's presenting symptoms and complaint, with consideration of any critical or life threatening conditions that may be associated with their obtained history and exam as noted above. All results were discussed with patient. Patient provided the opportunity to ask questions, and express concerns. Patient was educated on treatments based on their presumed diagnosis as noted above. At this time we will discharge the patient with return precautions and follow-up recommendations. Verbal discharge instructions given a the bedside. Medication warnings reviewed. Patient is in agreement with this plan and has verbalized understanding of return precautions. After careful consideration I feel that that patient can be safely discharged from the emergency department, they were advised to followup with a primary care physician in 2-3 days. Dictation on this chart was performed using voice recognition software and may result in unintended grammatical, spelling, syntax or errors. - Vital Signs Vital signs: Temp Pulse Resp BP Pulse Ox 97.4 F 81 20 98/61 L 98 03/04/19 19:22 03/04/19 19:22 03/04/19 19:22 03/04/19 19:22 03/04/19 19:22 - Laboratory Result Diagrams: 03/04/19 16:43 03/04/19 16:43 Laboratory results interpreted by me: 03/04/19 03/04/19 03/04/19 16:43 16:43 17:30 Seg Neutrophils % 82.0 H Lymphocytes % 12.4 L Sodium 136.5 L Urine Protein 30 H Urine Ketones TRACE H Urine Bilirubin SMALL H Urine Urobilinogen 2.0 H Ur Leukocyte Esterase MODERATE H Discharge - Discharge Clinical Impression: UTI (urinary tract infection) Qualifiers: Urinary tract infection type: site unspecified Hematuria presence: without hematuria Qualified Code(s): N39.0 - Urinary tract infection, site not specified Condition: Good Disposition: HOME, SELF-CARE Instructions: Urinary Tract Infection ([facility]) Additional Instructions: Your urine shows findings consistent with a urinary tract infection. Please take all the antibiotics as directed even if your symptoms have improved. Please follow-up with your primary care physician as needed. Return to emergency room if you develop fever >101F, persistent vomiting, become lethargic, have severe pain in your sides, or any other symptoms that are concerning to you. Prescriptions: Cephalexin Monohydrate [Keflex 500 mg Capsule] 500 mg PO BID 7 Days #14 capsule Forms: Smoking Cessation Education Referrals: LESLI CANAS MD [Primary Care Provider] - Follow up as needed
[2019-03-04 19:26] VITALS: BP 98/61
== END 2019-03-04 19:28 | disposition home or self-care (01) ==
LOC: ER 15:34
DX: N39.0 Urinary tract infection, site not specified (principal); R50.9 Fever, unspecified; R53.83 Other fatigue; R33.9 Retention of urine, unspecified; R11.0 Nausea; F17.210 Nicotine dependence, cigarettes, uncomplicated
CPT/HCPCS: 99406; 99283; 36415; 87086; 85025; 87088; 80053; 81001; 87186; J0696

== ENCOUNTER 2019-05-24 16:17 | Emergency (ER) | payer MEDICARE, MEDICAID ==
[2019-05-24 16:31] VITALS: BP 109/79
--- NOTE | 2019-05-24 16:41 | ER Document Report ---
HPI - HPI Patient complains to provider of: Foot swelling, odor to urine Time Seen by Provider: 05/24/19 16:18 Onset: Yesterday Onset/Duration: Gradual Quality of pain: No pain Pain Level: Denies Context: Patient is a paraplegic and his nurse aide was stretching his leg yesterday. Patient states that whenever she pushed on the bottom of his toes he heard a pop and since then has had swelling and bruising to the right foot and ankle. Patient is unable to feel his extremities and therefore has no pain symptoms. Patient does self cath himself and is noticed an odor to his urine. Patient was told he had a UTI by his primary doctor but his primary doctor placed him on Macrobid and then the next day called to state that that would not cover the bacteria in his urine and switched his prescription to Bactrim. states that patient is allergic to sulfa drugs and cannot take this medication. has been unable to get up with the office to discuss needing to have his medications changed. states that typically he will get a Rocephin shot when he has a UTI and is concerned he needs this today. Associated Symptoms: Other - Odor to urine, right foot swelling and bruising. denies: Fever Exacerbated by: Denies Relieved by: Denies Similar symptoms previously: Yes Recently seen / treated by doctor: Yes - ROS ROS below otherwise negative: Yes Systems Reviewed and Negative: Yes All other systems reviewed and negative - CONSTITUTIONAL Constitutional: DENIES: Fever, Chills - NEURO Neurology: DENIES: Headache - GASTROINTESTINAL Gastrointestinal: DENIES: Abdominal Pain - URINARY Urinary: DENIES: Dysuria - MUSCULOSKELETAL Musculoskeletal: REPORTS: Swelling - DERM Skin Color: Ecchymosis Skin Problems: None Past Medical History - General Information source: Patient, Relative - Social History Smoking Status: Current Some Day Smoker Frequency of alcohol use: None Drug Abuse: None Lives with: Spouse/Significant other Family History: Reviewed & Not Pertinent - Medical History Medical History: Other - Paraplegic Malignancy Medical History: Denies Hx Lung Cancer Psychiatric Medical History: Denies: Hx Dementia Traumatic Medical History: Reports: Hx Fractures - spinal C6-C7, fingers, toe Past Surgical History: Reports: Hx Urinary Tract Surgery - removal scar tissue - Immunizations Hx Diphtheria, Pertussis, Tetanus Vaccination: Yes Hx Pneumococcal Vaccination: 07/28/08 Vertical Provider Document - CONSTITUTIONAL Agree With Documented VS: Yes Exam Limitations: No Limitations General Appearance: WD/WN, No Apparent Distress - INFECTION CONTROL TRAVEL OUTSIDE OF THE [place] IN LAST 30 DAYS: No - HEENT HEENT: Atraumatic, Normocephalic - NECK Neck: Normal Inspection - RESPIRATORY Respiratory: No Respiratory Distress - CARDIOVASCULAR Pulses: Normal: Dorsalis pedis - MUSCULOSKELETAL/EXTREMETIES Musculoskeletal/Extremeties: Non-Tender, Edema, Eccymosis - right foot/ankle 2+ edema with ecchymosis - NEURO Level of Consciousness: Awake, Alert, Appropriate Motor/Sensory: negative: No Motor Deficit, No Sensory Deficit Notes: Patient paraplegic from chest down, no foot or ankle tenderness - DERM Integumentary: Warm, Dry Course - Re-evaluation Re-evalutation: 05/24/19 18:01 Urine culture is pending at this time. Will start Rocephin and cephalexin at this time. Patient encouraged to follow-up with primary care provider for recheck. No acute fracture noted on x-rays. Will encourage patient to follow- up with primary doctor for recheck given amount of swelling and ecchymosis present. - Vital Signs Vital signs: Temp Pulse Resp BP Pulse Ox 97.7 F 71 17 109/79 97 05/24/19 16:27 05/24/19 16:27 05/24/19 16:27 05/24/19 16:27 05/24/19 16:27 - Diagnostic Test Radiology reviewed: Image reviewed, Reports reviewed Procedures - Immobilization Right Ankle Pre-Proc Neuro Vasc Exam: Normal Immobilizer type: Forrest wrap Performed by: PCT Post-Proc Neuro Vasc Exam: Normal Alignment checked and good: Yes Discharge - Discharge Clinical Impression: UTI (urinary tract infection) Qualifiers: Urinary tract infection type: site unspecified Hematuria presence: without hematuria Qualified Code(s): N39.0 - Urinary tract infection, site not specified Contusion of ankle, right Qualifiers: Encounter type: initial encounter Qualified Code(s): S90.01XA - Contusion of right ankle, initial encounter Condition: Stable Disposition: HOME, SELF-CARE Instructions: Cephalexin ([facility]), Contusion ([facility]), Muscle Strain ([facility]), Urinary Tract Infection ([facility]) Additional Instructions: Return immediately for any new or worsening symptoms Followup with your primary care provider, call tomorrow to make a followup appointment Urine culture is pending, we will call if you need any different treatment Prescriptions: Cephalexin Monohydrate [Keflex 500 mg Capsule] 500 mg PO BID 7 Days capsule Referrals: LESLI CANAS MD [ACTIVE STAFF] - Follow up as needed [facility] [Provider Group] - Follow up as needed
[2019-05-24 17:25] LABS: APPEARANCE,URINE SLIGHTLY-CLOUDY; BILIRUBIN,URINE NEGATIVE (NEGATIVE); COLOR,URINE YELLOW; GLUCOSE, URINE NEGATIVE (NEGATIVE); KETONES,URINE NEGATIVE (NEGATIVE); URINE SPECIFIC GRAVITY 1.025
[2019-05-24 17:26] LABS: LEUKOCYTE ESTERASE,URINE LARGE (NEGATIVE); NITRITE,URINE NEGATIVE (NEGATIVE); PROTEIN,URINE NEGATIVE (NEGATIVE)
--- NOTE | 2019-05-24 17:28 | RADIOLOGY REPORT (SQ) ---
EXAM DESCRIPTION: ANKLE RIGHT COMPLETE COMPLETED DATE/TIME: 05/24/2019 5:01 pm REASON FOR STUDY: foot swelling/bruising, heard pop during stretching COMPARISON: None. NUMBER OF VIEWS: Three views. TECHNIQUE: AP, lateral, and oblique radiographic images acquired of the right ankle. LIMITATIONS: None. FINDINGS: MINERALIZATION: Normal. BONES: No acute fracture or dislocation. No worrisome bone lesions. JOINTS: No effusions. SOFT TISSUES: No soft tissue swelling. No foreign body. OTHER: No other significant finding. IMPRESSION: NEGATIVE STUDY OF THE RIGHT ANKLE. NO RADIOGRAPHIC EVIDENCE OF ACUTE INJURY. TECHNICAL DOCUMENTATION: JOB ID: [id number] [employer]- All Rights Reserved Reading location - IP/workstation name: [email or web address]
[2019-05-24] MEDS ORDERED: CEFTRIAXONE INJ 1000 MG VIAL IM ONE (17:33)
[2019-05-24] MEDS ORDERED: LIDOCAINE 1% INJ (10 MG/ML) 10 ML MDV INJ ONE (17:33)
--- NOTE | 2019-05-24 17:41 | RADIOLOGY REPORT (SQ) ---
EXAM DESCRIPTION: FOOT RIGHT COMPLETE COMPLETED DATE/TIME: 05/24/2019 5:01 pm REASON FOR STUDY: foot swelling/bruising, heard pop during stretching COMPARISON: None. NUMBER OF VIEWS: Three views. TECHNIQUE: AP, lateral and oblique radiographic images acquired of the right foot. LIMITATIONS: None. FINDINGS: MINERALIZATION: Osteopenia. BONES: No acute fracture or dislocation. No worrisome bone lesions. JOINTS: No effusions. SOFT TISSUES: No soft tissue swelling. No foreign body. OTHER: No other significant finding. IMPRESSION: Osteopenia. No acute osseous finding. TECHNICAL DOCUMENTATION: JOB ID: [id number] [employer]- All Rights Reserved Reading location - IP/workstation name: [email or web address]
== END 2019-05-24 18:16 | disposition home or self-care (01) ==
LOC: ER 16:17
DX: S90.01XA Contusion of right ankle, initial encounter (principal); S90.31XA Contusion of right foot, initial encounter; X58.XXXA Exposure to other specified factors, initial encounter; N39.0 Urinary tract infection, site not specified; F17.200 Nicotine dependence, unspecified, uncomplicated; Z88.2 Allergy status to sulfonamides
CPT/HCPCS: 99283; 51701; 96374; 96375; 87086; 87088; 81001; 87186; 73610; 73630; J0696

== ENCOUNTER → 2019-05-26 | Outpatient (CLI) | payer MEDICARE, MEDICAID ==
--- NOTE | 2019-05-26 19:01 | RADIOLOGY REPORT (SQ) ---
EXAM DESCRIPTION: VENOUS UNILATERAL LOWER COMPLETED DATE/TIME: 05/26/2019 6:46 pm REASON FOR STUDY: RLE SWELLING M79.89 OTHER SPECIFIED SOFT TISSUE DISORDERS M25.471 EFFUSION, RIGH T ANKLE COMPARISON: None. TECHNIQUE: Dynamic and static sommer scale and color images acquired of the right leg venous system. S elected spectral images acquired with additional compression and augmentation maneuvers. The contrala teral common femoral vein and saphenofemoral junction were also imaged. Images stored on PACS. LIMITATIONS: None. FINDINGS: COMMON FEMORAL: Normal phasicity, compression and augmentation. No visualized echogenic ma terial on sommer scale. No defects on color images. FEMORAL: Normal compression and augmentation. No visualized echogenic material on sommer scale. No defe cts on color images. POPLITEAL: Normal compression, augmentation. No visualized echogenic material on sommer scale. No defec ts on color images. CALF VESSELS: Normal compression, augmentation. No visualized echogenic material on sommer scale. No de fects on color images. GSV and SSV: Normal compression, augmentation. No visualized echogenic material on sommer scale. No def ects on color images. ANY DEEP VENOUS INSUFFICIENCY: Not evaluated. ANY EVIDENCE OF POPLITEAL CYST: No. OTHER: No other significant finding. CONTRALATERAL COMMON FEMORAL VEIN AND SAPHENOFEMORAL JUNCTION: Normal phasicity, compression and augmentation. No visualized echogenic material on sommer scale. No de fects on color images. IMPRESSION: NO EVIDENCE OF DVT OR SVT IN THE RIGHT LEG. TECHNICAL DOCUMENTATION: JOB ID: [id number] [place]-72 2010 [employer]- All Rights Reserved Reading location - IP/workstation name: [email or web address]
--- NOTE | 2019-05-26 20:30 | RADIOLOGY REPORT (SQ) ---
MR LOWER EXTREMITY WITHOUT IV CONTRAST HISTORY: Ankle pain. COMPARISON: Radiographs dated 05/24/2019 TECHNIQUE: Multiplanar, multisequence MR imaging of the right ankle without the administration of intravenous gadolinium. FINDINGS: There is a nondisplaced fracture of the posterior calcaneal body with minimal surrounding bone marrow edema. No full-thickness chondral defects are identified. The talar dome is intact. There is mild thickening with abnormal T2 signal surrounding and within the distal Achilles tendon. No full-thickness tear is seen. The peroneal tendons, medial flexor tendons, and anterior extensor tendons are unremarkable. The lateral ligamentous structures, including the anterior and posterior tibiofibular and talofibular ligaments, as well as the calcaneofibular ligament, are intact. The deep and superficial deltoid ligaments are normal. The spring and arcuate ligaments are normal. Diffuse edema throughout the intrinsic foot musculature with fatty atrophy is consistent with myositis, which may be neurogenic or reactive. Diffuse subcutaneous edema surrounding the right ankle. There is trace ankle joint effusion. IMPRESSION: 1. Subacute nondisplaced fracture of the posterior calcaneus. 2. Achilles tendinopathy with mild interstitial tearing. No full-thickness tear.
== END ==
LOC: RAD 17:27
PROVIDERS: ATTEND Family Medicine Geriatric Medicine
DX: M79.89 Other specified soft tissue disorders (principal); M25.471 Effusion, right ankle
CPT/HCPCS: 93971

== ENCOUNTER 2020-02-07 20:43 | Emergency (ER) | payer MEDICARE, MEDICAID ==
[2020-02-07 20:49] VITALS: BP 130/81
[2020-02-07] MEDS ORDERED: NORMAL SALINE 1000 ML 1,000 ML IV ONE (22:06)
[2020-02-07] MEDS ORDERED: CEFTRIAXONE 1 GM/D5W RTU 1 GM/50 ML RTUPB IV ONE (22:06)
--- NOTE | 2020-02-07 22:08 | ER Document Report ---
ED Medical Screen (RME) - General Stated Complaint: FEVER/URINARY ISSUES Time Seen by Provider: 02/07/20 21:36 Primary Care Provider: LONNIE BRYANT MD [Primary Care Provider] - Follow up as needed Mode of Arrival: Wheelchair Information source: Patient, Relative - Daughter Notes: 59-year-old wheelchair-bound male patient presenting to the emergency department with concern for urinary tract infection. Patient reports he self caths for urine and he states that he has frequent UTIs. He states when he gets this bad he usually needs Rocephin. He does not have a fever on arrival but he reports that he has been feeling feverish for the last 24 hours. He denies any nausea, vomiting or diarrhea. I have greeted and performed a rapid initial assessment of this patient. A comprehensive ED assessment and evaluation of the patient, analysis of test results and completion of the medical decision making process will be conducted by additional ED providers. I have specifically instructed the patient or family members with the patient to immediately return to any nursing staff should anything change in the patient's condition or with their chief complaint. TRAVEL OUTSIDE OF THE [place] IN LAST 30 DAYS: No - Related Data Allergies/Adverse Reactions: No Known Allergies Allergy (Verified 03/04/19 15:36) Past Medical History - Past Medical History Cardiac Medical History: Denies: Hx Coronary Artery Disease, Hx Heart Attack, Hx Hypertension, Hx Pulmonary Embolism Pulmonary Medical History: Denies: Hx Asthma, Hx Bronchitis, Hx COPD, Hx Pneumonia, Hx Respiratory Failure, Hx Sleep Apnea, Hx Tuberculosis Neurological Medical History: Denies: Hx Cerebrovascular Accident, Hx Seizures, Hx Parkinson's Disease Renal/ Medical History: Denies: Hx Peritoneal Dialysis Malignancy Medical History: Denies Hx Lung Cancer Musculoskeltal Medical History: Denies Hx Arthritis, Denies Hx Multiple Sclerosis Psychiatric Medical History: Denies: Hx Dementia Traumatic Medical History: Reports: Hx Fractures - spinal C6-C7, fingers, toe Past Surgical History: Reports: Hx Urinary Tract Surgery - removal scar tissue - Immunizations Hx Diphtheria, Pertussis, Tetanus Vaccination: Yes Physical Exam - Vital signs Vitals: Temp Pulse Resp BP Pulse Ox 98.3 F 83 16 130/81 H 98 02/07/20 20:48 02/07/20 20:48 02/07/20 20:48 02/07/20 20:48 02/07/20 20:48 Course - Vital Signs Vital signs: Temp Pulse Resp BP Pulse Ox 98.3 F 83 16 130/81 H 98 02/07/20 20:48 02/07/20 20:48 02/07/20 20:48 02/07/20 20:48 02/07/20 20:48 Doctor's Discharge - Discharge Referrals: LONNIE BRYANT MD [Primary Care Provider] - Follow up as needed
[2020-02-07 23:01] LABS: APPEARANCE,URINE SLIGHTLY-CLOUDY; BILIRUBIN,URINE NEGATIVE (NEGATIVE); COLOR,URINE YELLOW; GLUCOSE, URINE 50 mg/dL (NEGATIVE); KETONES,URINE TRACE mg/dL (NEGATIVE); LEUKOCYTE ESTERASE,URINE LARGE (NEGATIVE); NITRITE,URINE NEGATIVE (NEGATIVE); PROTEIN,URINE 30 mg/dL (NEGATIVE); URINE SPECIFIC GRAVITY 1.026
[2020-02-07 23:28] LABS: ABSOLUTE BASOPHILS # (AUTO) 0.1 10^3/uL (0.0-0.2); ABSOLUTE MONOCYTES (AUTO) 0.6 10^3/uL (0.1-1.4); ABSOLUTE NEUT (AUTO) 6.5 10^3/uL (1.7-8.2); BASOPHILS % (AUTO) 0.7 % (0-2); EOSINOPHILS % (AUTO) 0.3 % (0-6); HEMATOCRIT 42.7 % (37.9-51.0); HEMOGLOBIN 14.7 g/dL (13.5-17.0); LYMPHOCYTES % (AUTO) 11.9 % (13-45); MEAN CORPUSCULAR HEMOGLOBIN 31.9 pg (27.0-33.4); MEAN CORPUSCULAR HGB CONC 34.3 g/dL (32.0-36.0); MEAN CORPUSCULAR VOLUME 93 fl (80-97); MONOCYTES % (AUTO) 7.3 % (3-13); PLATELET COUNT 191 10^3/uL (150-450); RED CELL DISTRIBUTION WIDTH 13.9 % (11.5-14.0); SEGMENTED NEUTROPHILS % (AUTO) 79.8 % (42-78); TOTAL CELLS COUNTED % (AUTO) 100 %; WHITE BLOOD COUNT 8.1 10^3/uL (4.0-10.5)
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
[2020-02-07 23:47] LABS: ALKALINE PHOSPHATASE 45 U/L (38-126); ANION GAP 7 (5-19); ASPARTATE AMINO TRANSFERASE 23 U/L (17-59); BILIRUBIN,TOTAL 0.8 mg/dL (0.2-1.3); BLOOD UREA NITROGEN 16 mg/dL (7-20); CALCIUM 9.2 mg/dL (8.4-10.2); CARBON DIOXIDE 24 mmol/L (22-30); CHLORIDE 104 mmol/L (98-107); GLUCOSE 116 mg/dL (75-110); POTASSIUM 4.1 mmol/L (3.6-5.0); TOTAL PROTEIN 6.7 g/dL (6.3-8.2)
[2020-02-08] MEDS ORDERED: VANCOMYCIN HCL INJ 1000 MG VIAL IV ONE (00:09)
== END 2020-02-08 02:44 | disposition home or self-care (01) ==
LOC: ER 20:43
DX: N30.00 Acute cystitis without hematuria (principal); R50.9 Fever, unspecified; F17.210 Nicotine dependence, cigarettes, uncomplicated; E66.9 Obesity, unspecified; R11.2 Nausea with vomiting, unspecified; G82.20 Paraplegia, unspecified; Z20.828 Contact with and (suspected) exposure to other viral communicable diseases; Z99.3 Dependence on wheelchair; Z87.440 Personal history of urinary (tract) infections
CPT/HCPCS: 99283; 96365; 96367; 36415; 87040; 87086; 85025; 87088; 80053; 81001; 87186; U0003; J7030; J3370; J0696; C9803; 87635

== ENCOUNTER → 2020-05-30 | Outpatient (CLI) | payer MEDICARE, MEDICAID | LOC: OD 15:43 | PROVIDERS: ATTEND Family Medicine | DX: E29.1 Testicular hypofunction (principal) | CPT/HCPCS: 36415; 84402; 84403 ==